=== PATIENT | female | born 1965 | race Caucasian/White ===

== ENCOUNTER → 2021-10-30 11:30 | Outpatient (BNVA) | payer MEDICARE, SELFPAY | PROVIDERS: Visit Provider Nurse Practitioner Family | DX: F32.A Depression, unspecified (principal); F41.9 Anxiety disorder, unspecified; E55.9 Vitamin D deficiency, unspecified; Z13.6 Encounter for screening for cardiovascular disorders; Z12.11 Encounter for screening for malignant neoplasm of colon | CPT/HCPCS: 80053; 80061; 82306; 82607; 83735; 84443; 85025 ==

== ENCOUNTER → 2021-11-07 09:05 | Outpatient (BNVA) | payer MEDICARE, SELFPAY | PROVIDERS: Visit Provider Nurse Practitioner Family | DX: E87.1 Hypo-osmolality and hyponatremia (principal) | CPT/HCPCS: 80048 ==

== ENCOUNTER → 2021-12-01 11:49 | Outpatient (BNVA) | payer MEDICARE, MEDICAID, SELFPAY | PROVIDERS: Visit Provider Nurse Practitioner Family | DX: K92.1 Melena (principal); K92.2 Gastrointestinal hemorrhage, unspecified; R59.1 Generalized enlarged lymph nodes | CPT/HCPCS: 80053; 81003; 85025 ==

== ENCOUNTER → 2021-12-05 09:59 | Outpatient (BNVA) | payer MEDICARE, MEDICAID, SELFPAY | PROVIDERS: Visit Provider Surgery | DX: K21.9 Gastro-esophageal reflux disease without esophagitis (principal); K92.1 Melena | CPT/HCPCS: 99203 ==